=== PATIENT | male | born 1965 | race Two or more races ===

== ENCOUNTER 2019-02-24 21:19 | Emergency (ER) | payer SELFPAY ==
[~2019-02-24] VITALS: Ht 167.6 cm; Wt 72.6 kg
--- NOTE | 2019-02-24 21:24 | NUR ---
Pt bib [id number] for suicidal thoughts of jumping off a bridge. Notified Gun Stock Maker for sitter, no sitter available at this time, utilized security at bedside.
--- NOTE | 2019-02-24 21:24 | NUR ---
Patient is AOx4, speaking in complete sentences, speech is clear. Able to follow /comprehend directions. Gait is stable. No cardiovascular distress noted. Rate/rhythm regular. No CP. No respiratory distress noted. Respirations even , unlabored, symmetrical chest rise. No adventitious sounds noted. Chief complaint: Patient comes in bib rescue c/o recurring si concerns. states "i am tired there is just too much, I called 911, I tried to OD on meds this morning and jump off of a bridge. 3months ago, I tried to cut my jugular vein. I am tired" Denies Fever/Chills. No recent travel. +Diabetic/NKDA. -ETOH / +recreational drug use/ +10cigarettes per day. non-agitated, non-intoxicated, + SI. +prior attempts, -hope for future, +substance abuse, -anxiety SAFETY Patient in bed, bed in lowest position. Siderails up x 2. Call light within reach. Will continue to monitor accordingly assigned security training professional for now as 1 on 1 bedside sitter.
[2019-02-24] MEDS ORDERED: INSU100V28 (21:46)
[2019-02-24] MEDS ORDERED: FLUO20CA36 PO (21:46)
[2019-02-24] MEDS ORDERED: INSU3INS6 SQ (21:46)
[2019-02-24] MEDS ORDERED: GABA-534 PO (21:46)
[2019-02-24] MEDS ORDERED: QUET200T5 PO (21:46)
[2019-02-24] MEDS ORDERED: QUET150T2 PO (21:46)
--- NOTE | 2019-02-24 21:54 | NUR ---
CALLED [employer] HR GENERALIST FOR PLANTING MATERIAL UNLOADER ([employer] [place]) BUT UNABLE TO REACH. LEFT VOICEMAIL
[2019-02-24 21:59] LABS: BASOPHILS # (AUTO) 0.1 K/uL (0.0-8.0); EOSINOPHILS # (AUTO) 0.3 K/uL (0.0-0.7); EOSINOPHILS % (AUTO) 3.3 % (0.0-7.0); HEMOGLOBIN 13.2 g/dL (12.5-16.3); LYMPHOCYTES # (AUTO) 2.2 K/uL (20.0-40.0); LYMPHOCYTES % (AUTO) 22.5 % (20.5-51.5); MEAN CORPUSCULAR HEMOGLOBIN 30.9 uug (23.8-33.4); MEAN CORPUSCULAR HGB CONC 35 g/dL (32.5-36.3); MONOCYTES % (AUTO) 9.7 % (0.0-11.0); NEUTROPHILS # (AUTO) 6.3 K/uL (1.8-8.9); NEUTROPHILS % (AUTO) 63.5 % (38.5-71.5); PLATELET COUNT (AUTO) 323 K/uL (152-348); RED BLOOD CELL COUNT(AUTO) 4.26 MIL/uL (4.06-5.63)
[2019-02-24] MEDS ORDERED: INSULIN REGULAR, HUMAN 300 UNIT/3 ML VIAL SQ ONE (22:00)
[2019-02-24] MEDS ORDERED: INSULIN REGULAR, HUMAN 300 UNIT/3 ML VIAL ONE (22:01)
[2019-02-24 22:03] LABS: CARBON DIOXIDE 28 mmol/L (21-32); CHLORIDE 98 mmol/L (98-107); CREATININE 1.3 mg/dL (0.6-1.3); GLUCOSE 263 mg/dL (74-106); POTASSIUM 5.2 mmol/L (3.5-5.1); UREA NITROGEN, BLOOD 22 mg/dL (7-18)
[2019-02-24 22:10] LABS: ETHANOL < 3 MG/DL (0-0)
[2019-02-24 22:16] LABS: ACETAMINOPHEN < 2.0 ug/mL (10-30); ALANINE AMINOTRANSFERASE 16 U/L (16-63); ALKALINE PHOSPHATASE 103 U/L (50-136); ASPARTATE AMINOTRANSFERASE 9 U/L (15-37); BILIRUBIN,DIRECT 0.1 mg/dL (0.0-0.2); BILIRUBIN,TOTAL 0.6 mg/dL (0.2-1.0); TOTAL PROTEIN, SERUM 8.2 g/dL (6.4-8.2)
--- NOTE | 2019-02-24 22:41 | NUR ---
FOURTH ATTEMPT BUT UNABLE TO REACH DRAFT ROLLER PICKER FOR TRAFFIC OBSERVER ([employer] [place]) LEFT VOICE MESSAGE Patient in bed, bed in lowest position. Siderails up x 2. Call light within reach. Will continue to monitor accordingly REASSURED SAFETY. PT IS CALM, NAD
--- NOTE | 2019-02-24 23:00 | NUR ---
MANAGED TO REACH BEAUTY THERAPIST OFFICE: FANNY HAYNES IS ON LEAVE, COVERING BEAUTY THERAPIST FOR TONIGHT IS MAGALYS WHITAKER. ER PROVIDED HAND OFF TO BEAUTY THERAPIST WHILE WAITING FOR BEAUTY THERAPIST, PT IS REFUSING TO PROVIDE URINE FOR TOX SCREEN. PT IS ALLOWED ACCESS TO A PHONE ONCE HE REQUESTED TO CALL HIS SKIRT CLIPPER. "YOU ARE TRYING TO BUILD A CASE AGAINST ME"
--- NOTE | 2019-02-24 23:43 | NUR ---
MAGALYS WHITAKER LCSW ARRIVED AT ER FOR PT PSYCHE EVALUATION.
--- NOTE | 2019-02-24 23:46 | NUR ---
PT REFUSED TO DO A BLOOD SUGAR RECHECK VIA FINGERSTICK. EXPLAINED THE RISKS AND BENEFITS OF HIS DECISION. PT IS NAD, KEPT SAFE, 1:1 SITTER AT BEDSIDE MD NOTIFIED TRUCK RENTAL CLERK NOTIFIED.
--- NOTE | 2019-02-24 23:49 | NUR ---
CHANGE MANAGER AT BEDSIDE FOR PSYCHE EVALUATION
--- NOTE | 2019-02-25 00:18 | NUR ---
PT WAS CLEARED AND DISCHARGED PER ER MD AND RUBBER TIRE AND TUBES SUPERVISOR, WRITTEN STATEMENT OBTAINED PER RUBBER TIRE AND TUBES SUPERVISOR Patient discharged in stable conditon, AMBULATORY WITH STABLE GAIT. Written and verbal after care instructions given. Patient verbalizes understanding of instructions. ALL BELONGINGS WITH PATIENT
[2019-02-25 00:32] VITALS: BP 140/88
== END 2019-02-25 00:15 | disposition home or self-care (01) ==
LOC: ER 21:19
DX: F32.9 Major depressive disorder, single episode, unspecified (principal); R45.851 Suicidal ideations; E11.9 Type 2 diabetes mellitus without complications; Z88.0 Allergy status to penicillin; Z79.4 Long term (current) use of insulin; Z79.899 Other long term (current) drug therapy
CPT/HCPCS: 36415; 71045; 80048; 80076; 82962; 85025; 93005; 96372; 99284; G0480 ×2; G0481; J1815; A4663

== ENCOUNTER 2019-02-25 04:15 | Emergency (ER) | payer SELFPAY ==
[~2019-02-25] VITALS: Ht 167.6 cm; Wt 72.6 kg
[~2019-02-25 04:15] MED LIST: FLUO20CA36 PO; GABA-534 PO; INSU100V28; INSU3INS6 SQ; QUET150T2 PO; QUET200T5 PO
--- NOTE | 2019-02-25 04:20 | NUR ---
Pt came in accompanied by [employer] officers, ambulatory and on hand cuffs. endorsed by officer: "We were talking outside for a good 45minutes and he states he is depressed and anxious, and pt states he wants to hurt himself and cut his jugular." Officer signed Form 5150 due to si concern. Pt is argumentative, anxious and yelling and refusing to change into pt gown. Pt was wanded by security, all pt belongings placed away from bedside per 5150 protocol. 1on1 sitter at bedside, reassured, reoriented, kept warm dry and comfortable ERMD aware, STORAGE RECEIPT POSTER aware per STORAGE RECEIPT POSTER, will be observing for a few hours. Patient is AOx4, speaking in complete sentences, speech is clear. Able to follow /comprehend directions. Gait is stable. No cardiovascular distress noted. Rate/rhythm regular. No CP. No respiratory distress noted. Respirations even , unlabored, symmetrical chest rise. No adventitious sounds noted. SAFETY Patient in bed, bed in lowest position. Siderails up x 2. Call light within reach. Will continue to monitor accordingly
[2019-02-25 05:26] LABS: *BILIRUBIN,URIN NEGATIVE (NEGATIVE); *BLOOD, URINE NEGATIVE (NEGATIVE); *CLARITY,URINE CLEAR (CLEAR); *COLOR,URINE YELLOW (YELLOW); *KETONES,URINE 1+ (NEGATIVE); *UROBILINOGEN,URINE 0.2 E.U./dl (NORMAL); LEUKOCYTE ESTERASE ,URINE 1+ (NEGATIVE); NITRITE, URINE NEGATIVE (NEGATIVE); PH,URINE 6.5 (5.0-8.0); UGLUCOSE 1+ (NEGATIVE)
[2019-02-25 05:34] LABS: BACTERIA,URINE FEW /HPF (NONE SEEN); RBC,URINE NONE SEEN /HPF (0-3); SQUAMOUS EPITHELIAL CELL,UR FEW /HPF (NONE SEEN)
[2019-02-25 05:39] LABS: *AMPHETAMINE, URINE POSITIVE (NEGATIVE); *BARBITURATE, URINE NEGATIVE (NEGATIVE); *CANNABINOID, URINE NEGATIVE (NEGATIVE); *COCCAINE, URINE NEGATIVE (NEGATIVE); *OPIATE, URINE NEGATIVE (NEGATIVE); *PHENCYCLIDINE SCREEN,URINE NEGATIVE (NEGATIVE)
--- NOTE | 2019-02-25 06:00 | NUR ---
PT NAD, STILL WITH 1ON1 SITTER AT BEDSIDE STILL ARGUMENTATIVE AND EXHIBITS MANIPULATIVE BEHAVIOR. STATES "DO YOU HAVE ANYTHING FOR ANXIETY DOCTOR?" ORDERED MEDS GIVEN. PT ABLE TO TOLERATE MEDICATION. KEPT SAFE, REASSURED AND REORIENTED.
[2019-02-25] MEDS ORDERED: OLANZAPINE 5 MG TABLET PO ONE (06:30)
[2019-02-25] MEDS ORDERED: OLANZAPINE 5 MG TABLET ONE (06:30)
--- NOTE | 2019-02-25 06:44 | NUR ---
RECEIVED UPDATE FROM NIGHT SPRUE KNOCKER, STATES HE WILL BE IN TOUCH WITH THE DIRECTOR, MS GLEASON. MAGALYS WHITAKER [facility] WILL ARRIVE FOR PSYCHE EVALUATION. PT NAD, ABLE TO TOLERATE MEDS ORDERED. STILL WITH ARGUMENTATIVE AND MANIPULATIVE BEHAVIORS. DENIES ANXIETY, KEPT WARM DRY AND COMFORTABLE
--- NOTE | 2019-02-25 07:08 | NUR ---
Patient is resting comfortably in bed with eyes closed, NAD noted. 1 to1 sitter at the bedside.
--- NOTE | 2019-02-25 07:12 | NUR ---
hand off and sbar given to Day Shift RN.
--- NOTE | 2019-02-25 08:20 | NUR ---
Breakfast tray provided. Pt denies any SI at this time.
--- NOTE | 2019-02-25 08:38 | NUR ---
Brennen Marrero LCSW from crises team at the bedside for Pych eval.
--- NOTE | 2019-02-25 08:50 | NUR ---
According to Dr Friedman and nate team dental billing specialist. Pt will be discharge, and no longer is on 5150 hold.
--- NOTE | 2019-02-25 09:07 | NUR ---
Patient given written and verbal discharge instructions. Patient verbalizes understanding of instructions. Patient is ambulatory with steady gait. Refuses offer of [facility] placement. Patient given list of available shelters in surrounding area. Pt provided TAP card,for bus transportation. pt walked out of Er w/ steady gait.
== END 2019-02-25 09:13 | disposition home or self-care (01) ==
LOC: ER 04:17
DX: F32.9 Major depressive disorder, single episode, unspecified (principal); F15.10 Other stimulant abuse, uncomplicated; E11.9 Type 2 diabetes mellitus without complications; F41.9 Anxiety disorder, unspecified; F17.210 Nicotine dependence, cigarettes, uncomplicated; Z88.0 Allergy status to penicillin; Z59.0 Homelessness; Z79.4 Long term (current) use of insulin; Z79.899 Other long term (current) drug therapy
CPT/HCPCS: 80307; 87086; A4663